=== PATIENT | male | born 1990 | race Caucasian/White ===

== ENCOUNTER 2017-01-09 22:17 | Emergency (ER) | payer OTHER ==
[2017-01-09 22:44] VITALS: RESP 16
[2017-01-10] MEDS ORDERED: Tetracaine 0.5% Ophth (OR ONLY) ONE (00:19)
[2017-01-10] MEDS ORDERED: Fluorescein 1 mg Ophthalmic Strip ONE (00:19)
--- NOTE | 2017-01-10 01:44 | C.PDOC ---
History Of Present Illness Patient is a 26 year old male who presents to the ER with a complaint of right eye pain. Patient states he was drilling into a ceiling without protective eye wear when debris (coincrete) feel in his eye, states he feels a foreign body under eyelid. Denies any changes in vision. Time Seen by Provider: 01/09/17 22:46 Chief Complaint (Nursing): Eye Problem History Per: Patient History/Exam Limitations: no limitations Onset/Duration Of Symptoms: Hrs Current Symptoms Are (Timing): Still Present Injury To Eye?: No Associated Symptoms: Pain, FB Sensation. denies: Decreased Vision Past Medical History Reviewed: Historical Data, Nursing Documentation, Vital Signs Vital Signs: Last Vital Signs Temp 97.4 F L 01/10/17 02:09 Pulse 88 01/10/17 02:09 Resp 16 01/10/17 02:09 BP 133/87 01/10/17 02:09 Pulse Ox 100 01/10/17 02:59 Family History: States: Unknown Family Hx - Social History Hx Tobacco Use: No Hx Alcohol Use: Yes Hx Substance Use: No - Immunization History Hx Tetanus Toxoid Vaccination: No Hx Influenza Vaccination: No Hx Pneumococcal Vaccination: No Review Of Systems Eyes: Positive for: Pain, Other (FB sensation). Negative for: Vision Change Physical Exam - Physical Exam Appears: Well, Non-toxic Skin: Normal Color, Warm, Dry Head: Atraumatic, Normacephalic Eye(s): bilateral: Normal Inspection, PERRL, EOMI, right: Other (mild conjunctiva erythema. Upper eye lid flipped, no FB found. ) Oral Mucosa: Moist Neurological/Psych: Oriented x3, Normal Speech, Normal Cognition ED Course And Treatment O2 Sat by Pulse Oximetry: 100 (Room air) Pulse Ox Interpretation: Normal Progress Note: Patient's eye irrigated with saline. Medical Decision Making Medical Decision Making: pt's eye fluoreceined; no corenal uptake. upper lid flipped up. no fb noted. right eye irrigated with ns copiously, pt still with fb sensation. mild conjunctival irritation. Disposition Counseled Patient/Family Regarding: Diagnosis, Need For Followup - Disposition Disposition: HOME/ ROUTINE Disposition Time: 02:20 Condition: STABLE Additional Instructions: Follow up with eye doctor later today. Forms: General Discharge Instructions - Clinical Impression Clinical Impression: Foreign body, eye - Scribe Statement The provider has reviewed the documentation as recorded by the Darenibjamila Aldrich All medical record entries made by the Chalo were at my direction and personally dictated by me. I have reviewed the chart and agree that the record accurately reflects my personal performance of the history, physical exam, medical decision making, and the department course for this patient. I have also personally directed, reviewed, and agree with the discharge instructions and disposition.
[2017-01-10 02:09] VITALS: BP 133/87; PULSE 88; TEMP 97.4
[2017-01-10 02:23] VITALS: O2SAT 100
== END 2017-01-10 02:25 | disposition home or self-care (01) ==
LOC: C.ER 22:17
DX: T15.91XA Foreign body on external eye, part unspecified, right eye, initial encounter (principal); X58.XXXA Exposure to other specified factors, initial encounter

== ENCOUNTER 2017-05-30 12:06 | Emergency (ER) | payer SELFPAY ==
[2017-05-30 12:31] VITALS: BP 122/78; PULSE 75; RESP 20; TEMP 98.4; O2SAT 99
--- NOTE | 2017-05-30 13:28 | C.PDOC ---
History Of Present Illness 26 y/o male presents to ED with complaints of itchy rash to bilateral arms and legs for 8 days. Patient reports no one else in family has it and doesnt think he is allergic to anything. Patient denies recent travel, fever, chills, sob, chest pain or any other complaints at this time. Time Seen by Provider: 05/30/17 12:36 Chief Complaint (Nursing): Abnormal Skin Integrity History Per: Patient History/Exam Limitations: no limitations Onset/Duration Of Symptoms: Days Current Symptoms Are (Timing): Still Present Location Of Injury: Right: Arm, Leg, Left: Arm, Leg Quality Of Symptoms: Itching Past Medical History Reviewed: Historical Data, Nursing Documentation, Vital Signs Vital Signs: Last Vital Signs Temp 98.4 F 05/30/17 12:27 Pulse 75 05/30/17 12:27 Resp 20 05/30/17 12:27 BP 122/78 05/30/17 12:27 Pulse Ox 99 05/30/17 14:08 Family History: States: Unknown Family Hx - Social History Hx Tobacco Use: No Hx Alcohol Use: Yes Hx Substance Use: No - Immunization History Hx Tetanus Toxoid Vaccination: No Hx Influenza Vaccination: No Hx Pneumococcal Vaccination: No Review Of Systems Except As Marked, All Systems Reviewed And Found Negative. Constitutional: Negative for: Fever, Chills Cardiovascular: Negative for: Chest Pain Respiratory: Negative for: Shortness of Breath Skin: Positive for: Rash Physical Exam - Physical Exam Appears: Non-toxic, No Acute Distress Skin: Normal Color, Warm, Rash (Haena papules to volar aspect of arms and legs) Head: Atraumatic, Normacephalic Eye(s): bilateral: Normal Inspection, PERRL, EOMI Oral Mucosa: Moist Tongue: Normal Appearing, No Swelling Lips: Normal Appearing, No Swelling Throat: Normal, No Erythema, No Exudate Chest: Symmetrical Cardiovascular: Rhythm Regular, No Murmur Respiratory: Normal Breath Sounds, No Rales, No Rhonchi, No Wheezing Extremity: Normal ROM, Capillary Refill (<2 seconds) Neurological/Psych: Oriented x3, Normal Speech, Normal Motor, Normal Sensation Gait: Steady ED Course And Treatment O2 Sat by Pulse Oximetry: 99 (RA) Pulse Ox Interpretation: Normal Medical Decision Making Medical Decision Making: Plan: * Jesusadida Disposition - Disposition Referrals: [facility] [Outside] Disposition: HOME/ ROUTINE Disposition Time: 13:28 Condition: GOOD Additional Instructions: Follow up with the medical doctor within 1-2 days, Return if worsened. Prescriptions: DiphenhydrAMINE [Benadryl] 25 mg PO QID #28 cap Ketoconazole [Nizoral] 120 ml TP BID #1 shampoo Ketoconazole 2% Cr [Nizoral] 60 gm EXT BID #3 tube predniSONE [Prednisone] 10 mg PO BID #10 tab Instructions: Tinea Corporis (ED) Forms: [employer] ([place]) - Clinical Impression Clinical Impression: Urticaria, Tinea corporis - PA / ASSOCIATE DIRECTOR QA / Resident Statement MD/DO has reviewed & agrees with the documentation as recorded. - Scribe Statement The provider has reviewed the documentation as recorded by the Chalo Shaw All medical record entries made by the Chalo were at my direction and personally dictated by me. I have reviewed the chart and agree that the record accurately reflects my personal performance of the history, physical exam, medical decision making, and the department course for this patient. I have also personally directed, reviewed, and agree with the discharge instructions and disposition.
== END 2017-05-30 13:40 | disposition home or self-care (01) ==
LOC: C.ER 12:06
DX: L50.9 Urticaria, unspecified (principal); B35.4 Tinea corporis